=== PATIENT | male | born 1990 | race Two or more races ===

== ENCOUNTER 2019-10-06 12:27 | Emergency (ER) | payer SELFPAY ==
[~2019-10-06] VITALS: Ht 177.8 cm; Wt 77.1 kg
[2019-10-06 13:00] VITALS: BP 121/66
== END 2019-10-06 14:02 | disposition home or self-care (01) ==
LOC: ER 12:27
DX: B99.9 Unspecified infectious disease (principal); H10.89 Other conjunctivitis; J02.9 Acute pharyngitis, unspecified